=== PATIENT | male | born 1935 | race African-American/Black ===

== ENCOUNTER 2017-11-25 13:40 | Inpatient (IN) | payer MEDICARE ==
[~2017-11-25] VITALS: Ht 177.8 cm; Wt 67.5 kg
[2017-11-25 13:58] LABS: GLUCOSE,POINT OF CARE 102 MG/DL (70-110)
[2017-11-25] MEDS ORDERED: [UNRECOGNIZED DRUG - CODE] PO (14:05)
[2017-11-25] MEDS ORDERED: PRAZ5 PO (14:05)
[2017-11-25] MEDS ORDERED: FURO80 PO (14:05)
[2017-11-25] MEDS ORDERED: [UNRECOGNIZED DRUG - OTHER] PO (14:05)
[2017-11-25] MEDS ORDERED: [UNRECOGNIZED DRUG - OTHER] PO (14:05)
[2017-11-25] MEDS ORDERED: [UNRECOGNIZED DRUG - OTHER] NEB (14:05)
[2017-11-25] MEDS ORDERED: [UNRECOGNIZED DRUG - OTHER] SQ (14:05)
[2017-11-25] MEDS ORDERED: ELTROXIN PO (14:05)
[2017-11-25] MEDS ORDERED: AMLO PO (14:05)
[2017-11-25] MEDS ORDERED: [UNRECOGNIZED DRUG - OTHER] PO (14:05)
[2017-11-25] MEDS ORDERED: ACETAMINOPHEN 500 MG TABLET PO ONE (14:15)
[2017-11-25] MEDS ORDERED: LEVO100 PO (14:16)
[2017-11-25] MEDS ORDERED: INS7030 SQ (14:16)
[2017-11-25] MEDS ORDERED: OS500 PO (14:16)
[2017-11-25] MEDS ORDERED: AMLO-511 PO (14:16)
[2017-11-25 14:38] LABS: BASOPHILS % (AUTO) 0.4 % (0.0-2.0); EOSINOPHILS % (AUTO) 0.5 % (1.0-6.0); HEMATOCRIT 37.8 % (41-53); HEMOGLOBIN 12.4 g/dL (13.5-17.5); LYMPHOCYTES # (AUTO) 1.6 K/uL (1.0-4.8); LYMPHOCYTES % (AUTO) 8.3 % (22.0-44.0); MEAN CORPUSCULAR HGB CONC 32.9 G/dL (31.0-37.0); MEAN CORPUSCULAR VOLUME 85 fL (80-100); MONOCYTES # (AUTO) 1.3 K/uL (0.1-1.0); MONOCYTES % (AUTO) 6.8 % (2.0-9.0); NEUTROPHILS # (AUTO) 16.1 K/uL (1.8-7.7); PLATELET COUNT (AUTO) 208 K/uL (150-450); RED BLOOD CELL COUNT(AUTO) 4.45 MIL/uL (4.50-5.90)
[2017-11-25 14:41] LABS: APPEARANCE,URINE CLEAR (CLEAR); BILIRUBIN,URINE NEGATIVE (NEGATIVE); GLUCOSE, URINE (UA) NEGATIVE (NEGATIVE); KETONES,URINE NEGATIVE (NEGATIVE); LEUKOCYTE ESTERASE ,URINE NEGATIVE (NEGATIVE); NITRATE,URINE NEGATIVE (NEGATIVE); OCCULT BLOOD,URINE MODERATE (NEGATIVE); PH,URINE 6.5 (5.0-8.0); PROTEIN,URINE SEE CONFIRM (NEGATIVE); UROBILINOGEN,URINE 0.2 mg/dL (<=1.0)
[2017-11-25] MEDS ORDERED: ALBUTEROL SULFATE 2.5 MG/0.5 ML NEB SOLUTION NEB ONE (14:45)
[2017-11-25] MEDS ORDERED: IPRATROPIUM BROMIDE 0.5 MG/2.5 ML NEB SOLUTION NEB ONE (14:45)
[2017-11-25 14:50] LABS: SULFOSALICYLIC ACID,URINE 4+ (Negative)
[2017-11-25 14:51] LABS: BACTERIA,URINE Rare /HPF (None Seen); WBC,URINE 0-2 /HPF (0-5)
[2017-11-25 14:51] LABS: ANION GAP 16 mmol/L (8-16); CALCIUM, TOTAL 9.2 mg/dL (8.8-10.5); CARBON DIOXIDE 27 mmol/L (22-29); CHLORIDE 94 mmol/L (98-107); CREATININE 6.43 mg/dL (0.60-1.30); GLOMERULAR FILTR. RATE CALC 10 mL/min (>60); GLUCOSE,RANDOM 97 mg/dL (70-110); POTASSIUM 3.6 mmol/L (3.5-5.1); SODIUM SERUM 137 mmol/L (136-145); UREA NITROGEN, BLOOD 61 mg/dL (7-18)
[2017-11-25 14:52] LABS: SQUAMOUS EPITHELIAL CELL,UR Rare /LPF (None Seen)
[2017-11-25 14:54] LABS: PROTHROMBIN TIME 10.7 SEC (9.4-11.6)
[2017-11-25] MEDS ORDERED: ALBUTEROL SULFATE 2.5 MG/0.5 ML NEB SOLUTION NEB PRN (15:00)
[2017-11-25] MEDS ORDERED: BISACODYL 10 MG RECTAL RECTAL SUPPOSITORY PR PRN (15:00)
[2017-11-25] MEDS ORDERED: ACETAMINOPHEN 325 MG TABLET PO PRN (15:00)
[2017-11-25 15:03] LABS: LACTIC ACID 1.7 mmol/L (0.4-2.0)
[2017-11-25 15:06] LABS: INFLUENZA TYPE A NEGATIVE FOR TYPE A (NEGATIVE); INFLUENZA TYPE B NEGATIVE FOR TYPE B (NEGATIVE)
[2017-11-25 15:14] LABS: ALANINE AMINOTRANSFERASE 34 U/L (12-78); ALBUMIN 3.4 g/dL (3.4-5.0); ALKALINE PHOSPHATASE 105 U/L (46-116); ASPARTATE AMINOTRANSFERASE 35 U/L (15-37); BILIRUBIN,TOTAL 0.6 mg/dL (0.1-1.0); CREATINE KINASE MB 1.8 ng/mL (0-5); CREATINE KINASE, TOTAL 332 U/L (39-308)
[2017-11-25] MEDS ORDERED: DEXTROSE 50%-WATER 25 GM/50 ML SYRINGE IVP PRN (15:30)
[2017-11-25] MEDS ORDERED: PIPERACILLIN SODIUM/TAZOBACTAM 0.75 GM in DEXTROSE 5%-WATER 50 ML IV PRN (16:00)
[2017-11-25] MEDS ORDERED: VANCOMYCIN HCL 1 GM/D5% WATER 200 ML IV ONE (16:00)
[2017-11-25] MEDS ORDERED: VANCOMYCIN HCL 1 GM/D5% WATER 200 ML IV PRN (16:00)
[2017-11-25 16:07] VITALS: BP 137/65
[2017-11-25] MEDS ORDERED: SODIUM CHLORIDE 0.9% 250 ML IV ONE (16:46)
[2017-11-25] MEDS: INSULIN ASPART 100 UNITS/ML - NON-FORMULARY SQ PRN ×2 (17:53→20:32)
[2017-11-25] MEDS ORDERED: INFLUENZA VIRUS VACCINE QVS 2017-18 (3YR+)/PF 60 MCG/0.5 ML SYRINGE IM ONE (18:45)
[2017-11-25 19:13] VITALS: BP 144/68
[2017-11-25] MEDS ORDERED: PNEUMOCOCCAL VACCINE POLYVALENT 0.5 ML VIAL [PPSV23] IM ONE (19:15)
[2017-11-25] MEDS: PIPERACILLIN SODIUM/TAZOBACTAM 2.25 GM in DEXTROSE 5%-WATER 50 ML IV SCH (19:46)
[2017-11-25] MEDS: DOCUSATE SODIUM 100 MG CAPSULE PO SCH (20:29)
[2017-11-25] MEDS: HEPARIN SODIUM,PORCINE 5,000 UNITS/ML VIAL SQ SCH (20:29)
[2017-11-25] MEDS ORDERED: OSELTAMIVIR PHOSPHATE 30 MG CAPSULE PO PRN (23:15)
[2017-11-25] MEDS ORDERED: OSELTAMIVIR PHOSPHATE 30 MG CAPSULE PO ONE (23:30)
[2017-11-26] VITALS (7 sets, daily range): BP systolic 123–154; BP diastolic 57–71
[2017-11-26] MEDS: DOXYCYCLINE 100 MG in DEXTROSE 5%-WATER 100 ML IV SCH ×2 (00:24→13:35)
[2017-11-26] MEDS: PIPERACILLIN SODIUM/TAZOBACTAM 2.25 GM in DEXTROSE 5%-WATER 50 ML IV SCH ×2 (04:53→20:25)
[2017-11-26 05:08] LABS: GLUCOMETER DEV NAME(LOC) 5S 1M; GLUCOSE,POINT OF CARE 207 MG/DL (70-110)
[2017-11-26 05:08] LABS: GLUCOMETER DEV NAME(LOC) 5S 1M; GLUCOSE,POINT OF CARE 215 MG/DL (70-110)
[2017-11-26 06:50] LABS: BASOPHILS % (AUTO) 0.6 % (0.0-2.0); EOSINOPHILS % (AUTO) 1.2 % (1.0-6.0); HEMATOCRIT 32.6 % (41-53); HEMOGLOBIN 10.8 g/dL (13.5-17.5); LYMPHOCYTES # (AUTO) 1.7 K/uL (1.0-4.8); LYMPHOCYTES % (AUTO) 11.1 % (22.0-44.0); MEAN CORPUSCULAR HGB CONC 33.1 G/dL (31.0-37.0); MEAN CORPUSCULAR VOLUME 85 fL (80-100); MONOCYTES # (AUTO) 1.1 K/uL (0.1-1.0); MONOCYTES % (AUTO) 6.9 % (2.0-9.0); NEUTROPHILS # (AUTO) 12.4 K/uL (1.8-7.7); NEUTROPHILS % (AUTO) 80.2 % (40.0-70.0); PLATELET COUNT (AUTO) 187 K/uL (150-450); RED BLOOD CELL COUNT(AUTO) 3.85 MIL/uL (4.50-5.90); RED CELL DISTRIBUTION WIDTH 15.8 % (11.5-14.5)
[2017-11-26] MEDS ORDERED: SODIUM CHLORIDE 0.9% 2,000 ML IV ONE (07:19)
[2017-11-26 07:22] LABS: CALCIUM, TOTAL 8.3 mg/dL (8.8-10.5); CREATININE 6.64 mg/dL (0.60-1.30); POTASSIUM 3.6 mmol/L (3.5-5.1); THYROID STIMULATING HORMONE 3.74 uIU/mL (0.36-3.74); VANCOMYCIN,RANDOM 15.4 mcg/mL (25.0-50.0)
[2017-11-26 07:26] LABS: HEMOGLOBIN A1C 5.6 % (4.5-6.2)
[2017-11-26] MEDS ORDERED: VANCOMYCIN HCL 1 GM/D5% WATER 200 ML IV ONE (10:00)
[2017-11-26] MEDS: PANTOPRAZOLE SODIUM 40 MG DR TABLET PO SCH (10:09)
[2017-11-26] MEDS: DOCUSATE SODIUM 100 MG CAPSULE PO SCH ×2 (10:09→20:25)
[2017-11-26] MEDS: ASPIRIN 81 MG CHEWABLE TABLET PO SCH (10:09)
[2017-11-26] MEDS: VITAMIN B COMP/VIT C/FOLIC ACID CAPSULE PO SCH (10:09)
[2017-11-26] MEDS: HEPARIN SODIUM,PORCINE 5,000 UNITS/ML VIAL SQ SCH ×2 (10:09→20:24)
[2017-11-26] MEDS ORDERED: IOVERSOL 350 MG/ML 100 ML VIAL ONE (11:17)
[2017-11-26] MEDS ORDERED: SODIUM CHLORIDE 0.9% 100 ML ONE (11:17)
[2017-11-26 17:53] LABS: GLUCOMETER DEV NAME(LOC) 5S 1M; GLUCOSE,POINT OF CARE 148 MG/DL (70-110)
[2017-11-26 17:53] LABS: GLUCOMETER DEV NAME(LOC) 5S 1M; GLUCOSE,POINT OF CARE 89 MG/DL (70-110)
[2017-11-26 20:18] LABS: GLUCOMETER DEV NAME(LOC) 5N 2S; GLUCOSE,POINT OF CARE 97 MG/DL (70-110)
[2017-11-27] MEDS: DOXYCYCLINE 100 MG in DEXTROSE 5%-WATER 100 ML IV SCH ×2 (03:29→12:27)
[2017-11-27 03:32] VITALS: BP 136/64
[2017-11-27 05:49] LABS: GLUCOMETER DEV NAME(LOC) 5S 1M; GLUCOSE,POINT OF CARE 90 MG/DL (70-110)
[2017-11-27 05:49] LABS: GLUCOMETER DEV NAME(LOC) 5S 1M; GLUCOSE,POINT OF CARE 114 MG/DL (70-110)
[2017-11-27 06:26] LABS: BASOPHILS % (AUTO) 0.8 % (0.0-2.0); EOSINOPHILS % (AUTO) 2.5 % (1.0-6.0); HEMATOCRIT 31.8 % (41-53); HEMOGLOBIN 10.7 g/dL (13.5-17.5); LYMPHOCYTES # (AUTO) 1.8 K/uL (1.0-4.8); LYMPHOCYTES % (AUTO) 13.5 % (22.0-44.0); MEAN CORPUSCULAR HEMOGLOBIN 28.3 pg (26.0-34.0); MEAN CORPUSCULAR HGB CONC 33.7 G/dL (31.0-37.0); MEAN CORPUSCULAR VOLUME 84 fL (80-100); MONOCYTES # (AUTO) 1.3 K/uL (0.1-1.0); MONOCYTES % (AUTO) 9.9 % (2.0-9.0); NEUTROPHILS # (AUTO) 9.7 K/uL (1.8-7.7); NEUTROPHILS % (AUTO) 73.3 % (40.0-70.0); PLATELET COUNT (AUTO) 229 K/uL (150-450); RED CELL DISTRIBUTION WIDTH 15.9 % (11.5-14.5)
[2017-11-27] MEDS ORDERED: LEVOTHYROXINE SODIUM 100 MCG TABLET PO SCH (06:30)
[2017-11-27 07:05] LABS: ALBUMIN 2.5 g/dL (3.4-5.0); BILIRUBIN,TOTAL 0.7 mg/dL (0.1-1.0); CALCIUM, TOTAL 8.7 mg/dL (8.8-10.5); CREATININE 4.31 mg/dL (0.60-1.30); POTASSIUM 3.9 mmol/L (3.5-5.1); TOTAL PROTEIN, SERUM 7.7 g/dL (6.4-8.2)
[2017-11-27 07:30] VITALS: BP 128/62
[2017-11-27 07:31] LABS: MAGNESIUM 1.8 mg/dL (1.80-2.40)
[2017-11-27] MEDS: PIPERACILLIN SODIUM/TAZOBACTAM 2.25 GM in DEXTROSE 5%-WATER 50 ML IV SCH ×2 (08:49→20:52)
[2017-11-27] MEDS: HEPARIN SODIUM,PORCINE 5,000 UNITS/ML VIAL SQ SCH ×2 (08:53→20:53)
[2017-11-27] MEDS: ASPIRIN 81 MG CHEWABLE TABLET PO SCH (08:53)
[2017-11-27] MEDS: PANTOPRAZOLE SODIUM 40 MG DR TABLET PO SCH (08:54)
[2017-11-27] MEDS: VITAMIN B COMP/VIT C/FOLIC ACID CAPSULE PO SCH (08:54)
[2017-11-27] MEDS: DOCUSATE SODIUM 100 MG CAPSULE PO SCH ×2 (08:54→20:53)
[2017-11-27 11:10] VITALS: BP 153/67
[2017-11-27] MEDS ORDERED: SODIUM CHLORIDE 0.9% 100 ML ONE (12:12)
[2017-11-27 15:41] VITALS: BP 136/73
[2017-11-27 19:39] VITALS: BP 143/82
[2017-11-27] MEDS: INSULIN ASPART 100 UNITS/ML - NON-FORMULARY SQ PRN (20:52)
[2017-11-27 23:34] VITALS: BP 141/67
[2017-11-28] MEDS: DOXYCYCLINE 100 MG in DEXTROSE 5%-WATER 100 ML IV SCH ×2 (00:03→12:01)
[2017-11-28] MEDS ORDERED: SODIUM CHLORIDE 3% 15 ML NEB SOLUTION NEB ONE ×2 (00:24→08:47)
[2017-11-28] MEDS ORDERED: 0.9% SODIUM CHLORIDE 5 ML NEB SOLUTION NEB ONE (00:25)
[2017-11-28] MEDS ORDERED: 0.9% SODIUM CHLORIDE 15 ML NEB SOLUTION NEB ONE (02:02)
[2017-11-28 05:08] VITALS: BP 134/58
[2017-11-28] MEDS: LEVOTHYROXINE SODIUM 112 MCG TABLET PO SCH (06:16)
[2017-11-28 06:50] LABS: BASOPHILS % (AUTO) 0.9 % (0.0-2.0); EOSINOPHILS % (AUTO) 4.9 % (1.0-6.0); HEMATOCRIT 31.4 % (41-53); HEMOGLOBIN 10.7 g/dL (13.5-17.5); LYMPHOCYTES # (AUTO) 2.1 K/uL (1.0-4.8); LYMPHOCYTES % (AUTO) 19.3 % (22.0-44.0); MEAN CORPUSCULAR HEMOGLOBIN 28.5 pg (26.0-34.0); MEAN CORPUSCULAR HGB CONC 34.1 G/dL (31.0-37.0); MEAN CORPUSCULAR VOLUME 84 fL (80-100); MONOCYTES # (AUTO) 1.3 K/uL (0.1-1.0); NEUTROPHILS # (AUTO) 6.9 K/uL (1.8-7.7); NEUTROPHILS % (AUTO) 62.9 % (40.0-70.0); PLATELET COUNT (AUTO) 252 K/uL (150-450); RED BLOOD CELL COUNT(AUTO) 3.75 MIL/uL (4.50-5.90); RED CELL DISTRIBUTION WIDTH 15.8 % (11.5-14.5)
[2017-11-28 07:26] LABS: ALBUMIN 2.3 g/dL (3.4-5.0); BILIRUBIN,TOTAL 0.6 mg/dL (0.1-1.0); CALCIUM, TOTAL 8.3 mg/dL (8.8-10.5); CREATININE 5.74 mg/dL (0.60-1.30); MAGNESIUM 2.1 mg/dL (1.80-2.40); PHOSPHORUS 4.5 mg/dL (2.5-4.9); POTASSIUM 3.8 mmol/L (3.5-5.1); TOTAL PROTEIN, SERUM 7.2 g/dL (6.4-8.2)
[2017-11-28 07:36] LABS: % IRON SATURATION 23.5 % (30-44)
[2017-11-28 07:56] VITALS: BP 144/60
[2017-11-28] MEDS: DOCUSATE SODIUM 100 MG CAPSULE PO SCH ×2 (07:59→20:20)
[2017-11-28] MEDS: PANTOPRAZOLE SODIUM 40 MG DR TABLET PO SCH (07:59)
[2017-11-28] MEDS: ASPIRIN 81 MG CHEWABLE TABLET PO SCH (07:59)
[2017-11-28] MEDS: VITAMIN B COMP/VIT C/FOLIC ACID CAPSULE PO SCH (07:59)
[2017-11-28] MEDS: PIPERACILLIN SODIUM/TAZOBACTAM 2.25 GM in DEXTROSE 5%-WATER 50 ML IV SCH ×2 (07:59→20:20)
[2017-11-28] MEDS: HEPARIN SODIUM,PORCINE 5,000 UNITS/ML VIAL SQ SCH ×2 (08:00→20:20)
[2017-11-28 11:23] LABS: ORGANISM ID Not indicated.; S PNEUMO SOURCE Urine; STREP PNEUMONIAE AG URINE Negative (Negative); STREP.PNEUMO BODY FLUID CULT. Not Indicated
[2017-11-28] MEDS ORDERED: SODIUM CHLORIDE 0.9% 100 ML ONE (12:07)
[2017-11-28] MEDS: INSULIN ASPART 100 UNITS/ML - NON-FORMULARY SQ PRN ×2 (12:10→20:30)
[2017-11-28 12:11] VITALS: BP 130/52
[2017-11-28 14:04] LABS: GLUCOMETER DEV NAME(LOC) 5N 2S; GLUCOSE,POINT OF CARE 107 MG/DL (70-110)
[2017-11-28 14:04] LABS: GLUCOMETER DEV NAME(LOC) 5S 1M; GLUCOSE,POINT OF CARE 138 MG/DL (70-110)
[2017-11-28 14:05] LABS: GLUCOMETER DEV NAME(LOC) 5N 2S; GLUCOSE,POINT OF CARE 167 MG/DL (70-110)
[2017-11-28 14:05] LABS: GLUCOMETER DEV NAME(LOC) 5N 2S; GLUCOSE,POINT OF CARE 91 MG/DL (70-110)
[2017-11-28 14:13] LABS: GLUCOMETER DEV NAME(LOC) 5N 2S; GLUCOSE,POINT OF CARE 141 MG/DL (70-110)
[2017-11-28 15:07] VITALS: BP 157/74
[2017-11-28 19:43] VITALS: BP 129/66
[2017-11-29 00:07] VITALS: BP 123/66
[2017-11-29 04:54] VITALS: BP 126/63
[2017-11-29] MEDS: LEVOTHYROXINE SODIUM 112 MCG TABLET PO SCH (06:05)
[2017-11-29 06:50] LABS: BASOPHILS % (AUTO) 1.2 % (0.0-2.0); HEMATOCRIT 33.6 % (41-53); HEMOGLOBIN 11.3 g/dL (13.5-17.5); LYMPHOCYTES # (AUTO) 2.1 K/uL (1.0-4.8); LYMPHOCYTES % (AUTO) 21.4 % (22.0-44.0); MEAN CORPUSCULAR HEMOGLOBIN 28.3 pg (26.0-34.0); MEAN CORPUSCULAR HGB CONC 33.8 G/dL (31.0-37.0); MEAN CORPUSCULAR VOLUME 84 fL (80-100); MONOCYTES # (AUTO) 1.3 K/uL (0.1-1.0); MONOCYTES % (AUTO) 13.7 % (2.0-9.0); NEUTROPHILS # (AUTO) 5.8 K/uL (1.8-7.7); NEUTROPHILS % (AUTO) 59.7 % (40.0-70.0); PLATELET COUNT (AUTO) 308 K/uL (150-450); RED BLOOD CELL COUNT(AUTO) 4.01 MIL/uL (4.50-5.90); RED CELL DISTRIBUTION WIDTH 15.6 % (11.5-14.5)
[2017-11-29 07:05] LABS: ALBUMIN 2.4 g/dL (3.4-5.0); BILIRUBIN,TOTAL 0.6 mg/dL (0.1-1.0); CALCIUM, TOTAL 8.7 mg/dL (8.8-10.5); CREATININE 4.39 mg/dL (0.60-1.30); MAGNESIUM 1.9 mg/dL (1.80-2.40); POTASSIUM 3.8 mmol/L (3.5-5.1); TOTAL PROTEIN, SERUM 7.9 g/dL (6.4-8.2)
[2017-11-29 07:26] VITALS: BP 127/62
[2017-11-29 08:02] LABS: GLUCOMETER DEV NAME(LOC) 5N 2S; GLUCOSE,POINT OF CARE 102 MG/DL (70-110)
[2017-11-29 08:02] LABS: GLUCOMETER DEV NAME(LOC) 5N 2S; GLUCOSE,POINT OF CARE 174 MG/DL (70-110)
[2017-11-29 08:02] LABS: GLUCOMETER DEV NAME(LOC) 5N 2S; GLUCOSE,POINT OF CARE 90 MG/DL (70-110)
[2017-11-29] MEDS ORDERED: SODIUM CHLORIDE 0.9% 250 ML IV ONE (08:22)
[2017-11-29] MEDS: PANTOPRAZOLE SODIUM 40 MG DR TABLET PO SCH (08:25)
[2017-11-29] MEDS: VITAMIN B COMP/VIT C/FOLIC ACID CAPSULE PO SCH (08:26)
[2017-11-29] MEDS: ASPIRIN 81 MG CHEWABLE TABLET PO SCH (08:26)
[2017-11-29] MEDS: HEPARIN SODIUM,PORCINE 5,000 UNITS/ML VIAL SQ SCH (08:26)
[2017-11-29] MEDS: PIPERACILLIN SODIUM/TAZOBACTAM 2.25 GM in DEXTROSE 5%-WATER 50 ML IV SCH (08:26)
[2017-11-29] MEDS: DOCUSATE SODIUM 100 MG CAPSULE PO SCH (08:26)
[2017-11-29 11:32] VITALS: BP 122/59
[2017-11-29] MEDS: INSULIN ASPART 100 UNITS/ML - NON-FORMULARY SQ PRN (12:01)
[2017-11-29] MEDS ORDERED: CefTRIAXone SODIUM 1 GM in DEXTROSE 5%-WATER 10 ML IV ONE (13:00)
[2017-11-29 13:57] LABS: GLUCOMETER DEV NAME(LOC) 5N 2S; GLUCOSE,POINT OF CARE 155 MG/DL (70-110)
[2017-11-29] MEDS ORDERED: CEFU250T58 PO (15:02)
== END 2017-11-29 17:00 | disposition home or self-care (01) | DRG 871 ==
LOC: EMS 13:44 → 5N 15:45
PROVIDERS: ADMIT Internal Medicine; ATTEND Internal Medicine
PROC: 5A1D70Z Performance of Urinary Filtration, Intermittent, Less than 6 Hours Per Day (ICD-10-PCS; 2017-11-26)
PROC: 5A1D70Z Performance of Urinary Filtration, Intermittent, Less than 6 Hours Per Day (ICD-10-PCS; principal; 2017-11-28)
DX: A41.9 Sepsis, unspecified organism (principal); N18.6 End stage renal disease; J18.9 Pneumonia, unspecified organism; I12.0 Hypertensive chronic kidney disease with stage 5 chronic kidney disease or end stage renal disease; E11.22 Type 2 diabetes mellitus with diabetic chronic kidney disease; D64.9 Anemia, unspecified; J21.9 Acute bronchiolitis, unspecified; R50.9 Fever, unspecified; Z85.528 Personal history of other malignant neoplasm of kidney; Z90.5 Acquired absence of kidney; Z99.2 Dependence on renal dialysis; M19.90 Unspecified osteoarthritis, unspecified site; Z91.010 Allergy to peanuts; Z91.018 Allergy to other foods; E78.5 Hyperlipidemia, unspecified; E03.9 Hypothyroidism, unspecified; Z79.4 Long term (current) use of insulin; I45.10 Unspecified right bundle-branch block; I44.0 Atrioventricular block, first degree; I35.1 Nonrheumatic aortic (valve) insufficiency
CPT/HCPCS: 71260; 76700; 82962; 83036; 83540; 83550; 83605; 83735; 84100; 84145; 84443; 86480; 86618; 86738; 87015; 87040; 87070; 87081; 87086; 87205; 87207; 87340; 87449; 87804; 87899; 90471; 93005; 93306; 94640; 99285; J0696; J1644; J2543; J3370; J3490; J7030; J7050; J7060

== ENCOUNTER → 2019-03-18 | Outpatient (CLI) | payer MEDICARE ==
[~2019-03-18] MED LIST: AMLO5TAB9 PO; CEFU250T58 PO; FURO80 PO; INS7030 SQ; LEVO100 PO; OS500 PO; PRAZ5 PO; REGADENOSON 0.4 MG/5 ML PF SYRINGE IVP ONE; SESTAMIBI TC99M/UD ISOTOPE 1 EA INJ INJ ONE; [UNRECOGNIZED DRUG - CODE] PO; [UNRECOGNIZED DRUG - OTHER] NEB; [UNRECOGNIZED DRUG - OTHER] PO
[2019-03-18 08:25] VITALS: BP_SYST 121; BP_SYST 136; BP_DIAS 51; BP_DIAS 57
[2019-03-18 09:31] VITALS: BP 135/50
== END | disposition home or self-care (01) ==
LOC: MSR 08:23
PROVIDERS: ATTEND Internal Medicine Cardiovascular Disease
DX: E11.22 Type 2 diabetes mellitus with diabetic chronic kidney disease (principal); N18.6 End stage renal disease; R00.1 Bradycardia, unspecified
CPT/HCPCS: 78452; 93017; A9500; J2785